=== PATIENT | male | born 1940 | race Native Hawaiian/Other Pacific Islander ===

== ENCOUNTER 2021-01-12 04:57 | Emergency (ER) | payer OTHER, MEDICARE ==
[~2021-01-12] VITALS: Ht 170.2 cm; Wt 109.8 kg
[2021-01-12 05:53] LABS: PLATELET COUNT 138 K/uL (142-355)
[2021-01-12 07:51] VITALS: BP 111/50; TEMP 98.2
== END 2021-01-12 08:10 | disposition home or self-care (01) ==
LOC: ED 04:57
PROVIDERS: Emergency Medicine Emergency Medical Services
DX: K85.80 Other acute pancreatitis without necrosis or infection (principal)
CPT/HCPCS: 36415; 80053; 81000; 83690; 85027; 96360; 96374; 99284; J1885; J2405